=== PATIENT | female | born 1960 | race Caucasian/White ===

== ENCOUNTER 2019-06-12 07:47 | Emergency (ER) | payer SELFPAY ==
[~2019-06-12] VITALS: Ht 157.5 cm; Wt 59.0 kg
[2019-06-12 07:57] VITALS: BP 181/84
--- NOTE | 2019-06-12 08:16 | PHYS DOC ---
Past Medical History Past Medical History: No Pertinent History Past Surgical History: No Surgical History Alcohol Use: None Drug Use: None Adult General Chief Complaint Chief Complaint: LOWER EXTREMITY EDEMA HPI HPI Patient is a 58 year old female who presents with any cough swelling of left foot. Patient complaining of area of edema in lateral side of left foot for several days without pain, injury, numbness and weakness, shortness of breath, fever and chills, history of medical problem. Patient states she thinks chest infection. Review of Systems Review of Systems Constitutional: Denies fever or chills [] Eyes: Denies change in visual acuity, redness, or eye pain [] HENT: Denies nasal congestion or sore throat [] Respiratory: Denies cough or shortness of breath [] Cardiovascular: No additional information not addressed in HPI [] GI: Denies abdominal pain, nausea, vomiting, bloody stools or diarrhea [] : Denies dysuria or hematuria [] Musculoskeletal: Denies back pain or joint pain [] Integument: Denies rash or skin lesions [] Neurologic: Denies headache, focal weakness or sensory changes [] Endocrine: Denies polyuria or polydipsia [] All other systems were reviewed and found to be within normal limits, except as documented in this note. Allergies Allergies Allergies Coded Allergies Type Severity Reaction Last Updated Verified No Known Drug Allergies 06/12/19 No Physical Exam Physical Exam Constitutional: Well developed, well nourished, mild distress, non-toxic appearance. [] HENT: Normocephalic, atraumatic. Eyes: PERRLA, EOMI, conjunctiva normal, no discharge. [] Neck: Normal range of motion, no tenderness, supple, no stridor. [] Cardiovascular:Heart rate regular rhythm, no murmur [] Lungs & Thorax: Bilateral breath sounds clear to auscultation [] Abdomen: Bowel sounds normal, soft, no tenderness, no masses, no pulsatile m asses. [] Skin: Warm, dry, no erythema, no rash. [] Back: No tenderness, no CVA tenderness. [] Extremities: Bilateral lower extremity without edema or neurovascular deficit except for small area of erythema in medial side of lateral malleolus of left fo ot. Neurologic: Alert and oriented X 3, no focal deficits noted. [] Psychologic: Affect anxious, mood normal. [] Current Patient Data Vital Signs Vital Signs Date Time Temp Pulse Resp B/P (MAP) Pulse Ox O2 Delivery O2 Flow Rate FiO2 06/12/19 07:57 97.5 110 18 181/84 (116) 99 Room Air 97.5 EKG EKG [] Radiology/Procedures Radiology/Procedures [] Course & Med Decision Making Course & Med Decision Making Evaluation of patient in ER showed 58-year-old female patient with complaining of edema of left leg concern for infection. Patient does not have sign of infection or abnormal finding except small area of erythema. Patient had blood pressure 119 units in 200 in ER without history of hypertension. Patient was advised to record her blood pressure and follow up with her primary care physician. Dragon Disclaimer Dragon Disclaimer This electronic medical record was generated, in whole or in part, using a voice recognition dictation system. Departure Departure Impression: Primary Impression: Pedal edema Additional Impression: Elevated blood pressure reading without diagnosis of hypertension Disposition: HOME, SELF-CARE (at 0814) Condition: IMPROVED Referrals: NO PCP (PCP) Patient Instructions: Form - Blood Pressure Record Sheet, How to Take Your Blood Pressure, [id number], Peripheral Edema Additional Instructions: Apply ice on the swelling area Follow-up with your primary care physician in 3-5 days regarding elevation of blood pressure without history of hypertension Return to ER if not getting better Problem Qualifiers PENG TUCKER MD Jun 12, 2019 08:16
== END 2019-06-12 08:21 | disposition home or self-care (01) ==
LOC: ER 07:47
DX: R60.0 Localized edema (principal); R03.0 Elevated blood-pressure reading, without diagnosis of hypertension
CPT/HCPCS: 99281